=== PATIENT | male | born 1980 | race Caucasian/White ===

== ENCOUNTER → 2017-02-19 | Outpatient (CLI) | payer BC ==
[~2017-02-19] MED LIST: RIVA20TA2 PO
--- NOTE | 2017-02-19 15:46 | KCIC ---
LEFT SHOULDER, FOUR VIEWS, 02/19/2017: History: Shoulder pain No fracture or dislocation is identified. No significant arthritic change is seen. The periarticular soft tissues are unremarkable. IMPRESSION: No acute left shoulder abnormality is detected Electronically signed by: Moses Laughlin MD (Feb 19, 2017 15:45:30)
== END | disposition home or self-care (01) ==
LOC: KCIC 11:37
PROVIDERS: ATTEND Family Medicine
DX: M25.512 Pain in left shoulder (principal)
CPT/HCPCS: 73030